=== PATIENT | male | born 1950 | race Caucasian/White ===

== ENCOUNTER 2023-11-06 10:32 | Outpatient (REF) | payer MEDICARE, SELFPAY | END 2023-11-06 10:33 | disposition home or self-care (01) | LOC: HO.HOSX 10:32 | PROVIDERS: Visit Provider Orthopaedic Surgery | DX: Z13.89 Encounter for screening for other disorder (principal) ==

== ENCOUNTER 2023-11-13 07:37 | Outpatient (AMB) | payer MEDICARE, SELFPAY ==
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
[2023-11-13 08:04] VITALS: BMI 25.8
== END 2023-11-13 08:26 | disposition home or self-care (01) ==
PROVIDERS: PCP Physician Assistant Medical; Visit Provider Orthopaedic Surgery
DX: M25.512 Pain in left shoulder (principal)
CPT/HCPCS: 20610; 99204

== ENCOUNTER 2023-11-13 09:22 | Outpatient (REF) | payer MEDICARE, SELFPAY ==
--- NOTE | ~2023-11-13 | XR_ITS ---
EXAMINATION: XR SHOULDER, LEFT CLINICAL INFORMATION: Pain. COMPARISON: None available. TECHNIQUE: AP external rotation, Grashey, scapular Y, and axillary views of the left shoulder. FINDINGS: Bony alignment and mineralization are normal. The glenohumeral joint is intact. The acromioclavicular and coracoclavicular intervals are normal. 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 No fracture or dislocation is seen. There is no soft tissue calcification or foreign body. Question 5.9 x 2.5 cm opacity related to the proximal left humeral shaft versus overlapping soft tissue density. No left pneumothorax is seen. XR/XR shoulder LT min 2V IMPRESSION: 1. Unremarkable left shoulder. 2. Question 5.9 cm circumscribed opacity within the medullary space of the proximal left humerus versus overlapping opacity. Recommend two-view radiographs of the humerus for further evaluation.
== END 2023-11-13 09:23 | disposition home or self-care (01) ==
LOC: HO.HOSX 09:22
PROVIDERS: Visit Provider Orthopaedic Surgery
DX: M25.512 Pain in left shoulder (principal)
CPT/HCPCS: 20610; 73030; 99202; J1010

== ENCOUNTER 2023-12-05 09:30 | Outpatient (REF) | payer MEDICARE, SELFPAY | END 2023-12-05 09:31 | disposition home or self-care (01) | LOC: HO.HOSX 09:30 | PROVIDERS: Visit Provider Orthopaedic Surgery | DX: Z13.89 Encounter for screening for other disorder (principal) ==

== ENCOUNTER 2023-12-06 09:10 | Outpatient (REF) | payer MEDICARE, SELFPAY | END 2023-12-06 09:11 | disposition home or self-care (01) | LOC: HO.HOSX 09:10 | PROVIDERS: Visit Provider Orthopaedic Surgery | DX: Z13.89 Encounter for screening for other disorder (principal) ==

== ENCOUNTER 2024-02-14 09:15 | Outpatient (AMB) | payer MEDICARE, SELFPAY ==
--- NOTE | 2024-02-14 09:20 | A.OFFVIS_ITS ---
Intake Visit Reasons: OV- Left Shoulder, injection request Intake Note: Medhat is a 73 year old male who presents with complaints of left shoulder pain. The patient describes his pain as sharp in nature. He has had cortisone injections in the past which gave him fairly good relief. The patient states that his left shoulder pain was increased after getting a massage several weeks ago. He continues to play golf for exercise. He has tried Tylenol and anti- inflammatory medicines which gave him minimal relief. Allergies No Known Allergies Allergy (Verified 02/14/24 09:25) Medication List - Last Reconciled 02/14/24 by Jonathan Traore MD aspirin (Adult Low Dose Aspirin) 81 mg PO DAILY atorvastatin 40 mg PO BEDTIME dorzolamide 2% 1 drp ophthalmic (eye) TID latanoprost 0.005% 1 drp ophthalmic (eye) DAILY PFS Social History (Updated 02/14/24 @ 09:25 by WERO Godoy) Alcohol intake: former Patient Tobacco Use Status: Never used Tobacco Current occupational status: retired Physical Exam Const Other: Well-nourished well-developed very friendly male awake alert and oriented x3 in no acute distress Extrem Other: Bilateral upper extremity examination shows good capillary refill, no skin lesions noted, normal sensation light touch Left shoulder examination shows decreased range of motion when compared to his right shoulder, 4+ out of 5 strength with supraspinatus testing, positive impingement signs, no instability Office Procedures Joint Injection/Aspiration Joint Injection/Aspiration Primary Site: left shoulder Prep: site was prepped using aseptic technique Injected: 40 mg of, DepoMedrol and 1% plain lidocaine Procedure: The patient tolerated the procedure well Coding 12662 - Large joint Procedure code (CPT) selection complete Assessment & Plan Assessment & Plan (1) Impingement syndrome of left shoulder: Code(s): M75.42 - Impingement syndrome of left shoulder Category: Medical Plan Mr. Herrera presents with left shoulder pain due to impingement syndrome. I had a lengthy discussion with the patient regarding the treatment options. The risks and benefits of a left shoulder cortisone injection were discussed at length with the patient. The patient wished to proceed. He tolerated the injection well. He will continue with his [id number] exercises to prevent stiffness. He will contact me prior to his follow-up appointment in 3 months should any questions or concerns arise. Feel free to call me at any time should questions regarding his orthopedic management arise. I spent 22 minutes in reviewing the patient's records and imaging studies, seeing the patient and documenting in the medical record. Orders: Orders AMB Joint Injection/Aspiration Today M75.42 - Impingement syndrome of left shoulder Coding Level of Care Code Est Pt Level 3 (90489) Complex EM visit Add On G2211 Diagnoses Impingement syndrome of left shoulder M75.42 CPT Codes Coding - 72280 Large joint: 14546 - Large joint ([id number])
== END 2024-02-14 09:59 | disposition home or self-care (01) ==
PROVIDERS: PCP Physician Assistant Medical; Visit Provider Orthopaedic Surgery
DX: M75.42 Impingement syndrome of left shoulder (principal)
CPT/HCPCS: 20610; 99213

== ENCOUNTER → 2024-02-14 09:15 | Outpatient (BNVA) | payer MEDICARE, SELFPAY | PROVIDERS: PCP Physician Assistant Medical; Visit Provider Orthopaedic Surgery | DX: M75.42 Impingement syndrome of left shoulder (principal) | CPT/HCPCS: 20610; 99212; J1010 ==

== ENCOUNTER 2024-05-20 08:12 | Outpatient (AMB) | payer MEDICARE, SELFPAY ==
--- OUTSIDE RECORDS SUMMARY | 2024-05-20 08:16 | XMS_ITS | Continuity of Care Document ---
Author Organization [facility] Address [address] [place] [address]- Support Name Relationship Address Phone CRISTINA, SARIKA Personal Relationship Unknown Unava ilable CRISTINA, SARIKA Personal Relationship Unknown Unava ilable CRISTINA, SARIKA Personal Relationship Unknown Unava ilable CRISTINA, SARIKA Personal Relationship Unknown Unava ilable CRISTINA, SARIKA Personal Relationship Unknown Unava ilable CRISTINA, SARIKA Personal Relationship Unknown Unava ilable CRISTINA, SARIKA Personal Relationship Unknown Unava ilable CRISTINA, SARIKA Personal Relationship Unknown Unava ilable CRISTINA, SARIKA Personal Relationship Unknown Unava ilable CRISTINA, SARIKA Personal Relationship Unknown Unava ilable CRISTINA, SARIKA Personal Relationship Unknown Unava ilable CRISTINA, SARIKA Personal Relationship Unknown Unava ilable CRISTINA, SARIKA Personal Relationship Unknown Unava ilable CRISTINA, SARIKA J Personal Relationship Unknown Nidia vailable CRISTINA, SARIKA Personal Relationship Unknown Unava ilable CRISTINA, SARIKA Personal Relationship Unknown Unava ilable CRISTINA, SARIKA Personal Relationship Unknown Unava ilable CRISTINA, SARIKA Personal Relationship Unknown Unava ilable CRISTINA, SARIKA Personal Relationship Unknown Unava ilable BREGOLI, JEREMY spouse Unknown Unavailabl e CRISTINA, SARIKA Personal Relationship Unknown Unava ilable CRISTINA, SARIKA Personal Relationship Unknown Unava ilable CRISTINA, SARIKA Personal Relationship Unknown Unava ilable CRISTINA, SARIKA Personal Relationship Unknown Unava ilable BREGOLI, KELLE Personal Relationship Unknown Un available CRISTINA, SARIKA Personal Relationship Unknown Unava ilable CRISTINA, SARIKA Personal Relationship Unknown Unava ilable CRISTINA, SARIKA Personal Relationship Unknown Unava ilable CRISTINA, SARIKA Personal Relationship Unknown Unava ilable CRISTINA, SARIKA Personal Relationship Unknown Unava ilable CRISTINA, SARIKA Personal Relationship Unknown Unava ilable CRISTINA, SARIKA Personal Relationship Unknown Unava ilable QUIRK, SARIKA Personal Relationship Unknown Unavai lable CRISTINA, SARIKA Personal Relationship Unknown Unava ilable CRISTINA, SARIKA Personal Relationship Unknown Unava ilable CRISTINA, SARIKA Personal Relationship Unknown Unava ilable CRISTINA, SARIKA Personal Relationship Unknown Unava ilable CRISTINA, SARIKA Personal Relationship Unknown Unava ilable CRISTINA, SARIKA Personal Relationship Unknown Unava ilable CRISTINA, SARIKA domestic partner Unknown Unavailabl e CRISTINA, SARIKA Personal Relationship Unknown Unava ilable Care Team Providers Care Buyer Tobacco Head Name Role Phone Tacho Granados Primary Care Physician Encounter [facility] Date(s): 05/07/24 - 05/14/24 [facility] [place] [address]- Encounter Diagnosis Medicare annual wellness visit, subsequent(Discharge Diagnosis) - 05/07/24 Essential hypertension(Discharge Diagnosis) - 05/07/24 Chronic kidney disease, stage 3a(Discharge Diagnosis) - 05/07/24 PAD (peripheral artery disease)(Discharge Diagnosis) - 05/07/24 Mixed hyperlipidemia(Discharge Diagnosis) - 05/07/24 CAD (coronary artery disease)(Discharge Diagnosis) - 05/07/24 Chronic cervical pain(Discharge Diagnosis) - 05/07/24 Left foot drop(Discharge Diagnosis) - 05/07/24 BPH (benign prostatic hyperplasia)(Discharge Diagnosis) - 05/07/24 Senile purpura(Discharge Diagnosis) - 05/07/24 Abnormal glucose(Discharge Diagnosis) - 05/07/24 Encounter for screening fecal occult blood testing(Discharge Diagnosis) - 05/07/24 Attending Physician: Tacho Granados Referring Physician: Richard Washington MD Encounter Type: Office Visit Allergies, Adverse Reactions, Alerts No Known Allergies Immunizations Given and Recorded Vaccine Date Status Refusal Reason influenza virus vaccine, inactivated 03/20/24 Lalit rded influenza virus vaccine, inactivated 03/03/23 Lalit rded influenza virus vaccine, inactivated 02/22/22 Lalit rded influenza virus vaccine, inactivated 03/10/21 Lalit rded influenza virus vaccine, inactivated 01/27/20 Lalit rded influenza virus vaccine, inactivated 02/27/19 Lalit rded SARS-CoV-2 mRNA ([id number]) vax 11/03/21 Recorded SARS-CoV-2 (COVID-19) mRNA-1273 vaccine 1, 2 03/16/21 Given SARS-CoV-2 (COVID-19) mRNA-1273 vaccine 08/17/20 R ecorded SARS-CoV-2 (COVID-19) mRNA-1273 vaccine 07/20/20 R ecorded tetanus/diphtheria/pertussis, acel(Tdap) 3 06/21/14 Recorded pneumococcal 23-valent vaccine 4 06/21/14 Recorded 1? Unknown: Resend to [facility]. 2Result Comment: BOOSTER SHOT 0.25 ML 3Result Comment: per Dr. Camejo chart 4Result Comment: per Dr. Camejo chart Medications atorvastatin 40 mg oral tablet 1 tablet, By Mouth, Daily, # 90 tablet, 1 Refills, Maintenance, 02/26/24 9:42:00 AM EDT, [facility], 183, cm, 11/01/23 7:48:00 EDT, Height, 85.5, kg, 10/26/22 8:07:00 EDT, Dry Weight Start Date: 02/26/24 Status: Ordered Quantity: 90.0 Unit: tablet Repeat number: 1 Miguel Low Dose 81 mg oral delayed release tablet 1 tablet = 81 mg, By Mouth, Daily, 0 Refills, Maintenance, 01/01/17 1:10:15 PM EDT Start Date: 01/01/17 Status: Ordered Repeat number: 1 Dorzolamide 2% Ophth 1 drops, Eyes, Both, 3 times a day, 0 Refills, Maintenance, 04/08/15 8:39:52 AM EST Start Date: 04/08/15 Status: Ordered Repeat number: 1 hydrOXYzine pamoate 25 mg oral capsule 1 capsule = 25 mg, By Mouth, 4 times a day, PRN for anxiety, # 40 capsule, 1 Refills, Maintenance, 10/18/21 10:51:00 AM EDT, Capsule, [facility], Partial fill upon patient request ifthe prescription is for a schedule II opioid drug., 183.3, cm, 10/18/21 10:36:00 EDT, Height Start Date: 10/18/21 Status: Ordered Quantity: 40.0 Unit: capsule Repeat number: 2 Indication: Generalized anxiety disorder Latanoprost 0.005% Ophth 1 drops, Eyes, Both, Daily at bedtime, 0 Refills, Maintenance, 04/08/15 8:39:32 AM EST Start Date: 04/08/15 Status: Ordered Repeat number: 1 Left AFO Brace Left AFO Brace, See Instructions, # 1 each, Refills 0, Tot. Refills 0, Maintenance, 1 left AFO brace to be repaired or replaced. Dx Left foot drop (M21. 372). For Life, 05/07/24 8:13:00 AM EST, Supply Start Date: 05/07/24 Status: Ordered Quantity: 1.0 Unit: each Repeat number: 1 Indication: Foot drop, left foot Metoprolol Tartrate 25 mg oral tablet 1 tablet, By Mouth, Daily, # 90 tablet, 1 Refills, Maintenance, 08/30/23 2:07:00 PM EDT, [facility], 183, cm, 07/04/23 8:23:00 EST, Height, 85.5, kg, 10/26/22 8:07:00 EDT, Dry Weight Start Date: 08/30/23 Status: Ordered Quantity: 90.0 Unit: tablet Repeat number: 2 tadalafil 10 mg oral tablet 1 tablet = 10 mg, By Mouth, Daily, 1 hour before sexual activity, # 30 tablet, 1 Refills, Maintenance, 11/01/23 8:04:00 AM EDT, [facility], Partial fill upon patient request if the prescription is for a schedule II opioid drug., 183, cm, 11/01/23 7:48:00 EDT, Height, 85.5, kg, 10/26/22 8:07:00 EDT, Dry Weight Start Date: 11/01/23 Status: Ordered Quantity: 30.0 Unit: tablet Repeat number: 2 traMADol 50 mg oral tablet See Instructions, PRN for pain, Take 1-2 tablets TID PRN for severe pain., # 120 tablet, 0 Refills,Maintenance, 04/21/24 7:11:00 AM EST, Tablet, [facility], Partial fill upon patient request if the prescription is for a schedule II opioid drug., 183, cm, 11/01/23 7:48:00 EDT, Height, 85.5, kg, 10/26/22 8:07:00 EDT, Dry Weight Start Date: 04/21/24 Status: Ordered Quantity: 120.0 Unit: tablet Repeat number: 1 Problem List Condition Confirmation Course Effective Dates Status H ealth Status Informant BPH (benign prostatic hyperplasia) Confirmed Active CAD (coronary artery disease) 1 Confirmed Active Chronic kidney disease, stage 3a 2 Confirmed Active Chronic cervical pain 3 Confirmed Active Essential hypertension Confirmed Active Former smoker Confirmed Active Left foot drop Confirmed Active KAUA (generalized anxiety disorder) Confirmed Active History of alcohol abuse 4 Confirmed Active Mixed hyperlipidemia Confirmed Active PAD (peripheral artery disease) Confirmed Active Prediabetes Confirmed Active Senile purpura Confirmed Active 1sees Dr. Mcdaniel 2Per chart review meeting GFR criteria 3per med rec 4per med rec - going to Diagnosis Diagnosis Type Effective Dates Health Status Clinical Service Informant Medicare annual wellness visit, subsequent Discharge Diagnosis 05/07/24 Essential hypertension Discharge Diagnosis 05/07/24 Chronic kidney disease, stage 3a Discharge Diagnosis 05/07/24 PAD (peripheral artery disease) Discharge Diagnosis 05/07/24 Mixed hyperlipidemia Discharge Diagnosis 05/07/24 CAD (coronary artery disease) Discharge Diagnosis 05/07/24 Chronic cervical pain Discharge Diagnosis 05/07/24 Left foot drop Discharge Diagnosis 05/07/24 BPH (benign prostatic hyperplasia) Discharge Diagnosis 05/07/24 Senile purpura Discharge Diagnosis 05/07/24 Abnormal glucose Discharge Diagnosis 05/07/24 Encounter for screening fecal occult blood testing Discharge Diagnosis 05/07/24 Vital Signs Most recent to oldest [Reference Range]: 1 Height 183.0 cm (05/07/24 8:04 AM) Weight 89.4 kg (05/07/24 8:04 AM) Oxygen Saturation [94-100 %] 98 % (05/07/24 8:04 AM) Pulse Rate [55-90 bpm] 65 bpm (05/07/24 8:04 AM) Body Mass Index [18.5-24.99 kg/m2] 26.7 kg/m2 *H* (05/07/24 8:04 AM) Blood Pressure [90-138/55-84 mm Hg] 111/ 73mm Hg (05/07/24 8:04 AM) Blood pressure sites Arm, left (05/07/24 8:04 AM) Social History Social History Type Response Smoking Status Former smoker, quit more than 30 days ago; Other: Smoked about 1 ppd for 30 years - declines LDCT; Started at age: 18; Stopped at age: 54; entered on: 05/02/23 Sex Sex Representation Male (finding) Note * Sanjuanita Harvey [place]: PERFORM Event Display: Patient Education/Instruction Authored Date: [id number] Ambulatory Adult Visit Summary [facility] [address] [place] [address] Name: KELLE GARCIA : 1950?? Visit: 05/07/2024 07:56?? Ambulatory Visit Instructions ?? Your Care Team Primary Care Provider Tacho Granados? This Visit Provider Tacho Granados Your Diagnosis Medicare annual wellness visit, subsequent Essential hypertension Chronic kidney disease, stage 3a PAD (peripheral artery disease) Mixed hyperlipidemia CAD (coronary artery disease) Chronic cervical pain Left foot drop BPH (benign prostatic hyperplasia) Senile purpura Abnormal glucose Encounter for screening fecal occult blood testing Vitals Signs Pulse Rate: 65 bpm Height: 183 cm Systolic Blood Pressure: 111 mm Hg Weight: 89.4 kg Diastolic Blood Pressure: 73 mm Hg Body Mass Index:??26.7 kg/m2??High Oxygen Saturation: 98 % Body surface area: 2.13 What to do next Follow-Up Appointments Follow Up with??Tacho Granados When:??05/12/2025 07:10 AM EST Why: wellness Where: [address] [place] [id number]- Follow Up with??Tacho Granados When:??11/11/2024 07:50 AM EDT Why: 6 month follow up Where: [address] [place] [address]- Future Orders Fecal Occult Blood Immunochemical (Fecal Occult Blood Immunochemical FIT) - Routine, Once, 248:22:00 EST, [facility], Stool?? Hemoglobin A1C (Monitoring) - Routine, Once, 05/07/24 8:30:00 EST, Future Order, [facility], Blood?? Comprehensive Metabolic Panel - Routine, Once, 05/07/24 8:30:00 EST, Future Order, [facility], Blood?? Lipid Panel - Routine, Once, 05/07/24 8:30:00 EST, Future Order, [facility], Blood?? Medications The list below reflects the information in our records and provided by you today along with any changes made during this visit. Please continue your medications until treatment is completed or stopped by your provider. If this is different from the information you have or there are other questions,please contact the prescribing provider. What How Much When Why Instructions Changed Durable Medical Equipment (Left AFO Brace) See instructions Left foot drop 1 left AFO brace to be repaired or replaced. Dx Left foot drop (M21. 372). For Life ?? Printed Prescription Unchanged Aspirin (Miguel Low Dose 81 mg oral delayed release tablet) 1 tab(s) Oral Daily Unchanged Atorvastatin (atorvastatin 40 mg oral tablet) 1 tab(s) Oral Daily Unchanged Dorzolamide Ophthalmic (Dorzolamide 2% Ophth) 1 Drops Both eyes 3 times a day Unchanged HydrOXYzine (hydrOXYzine pamoate 25 mg oral capsule) 1 capsule Oral 4 times a day as needed for for anxiety AKUA (generalized anxiety disorder) Unchanged Latanoprost Ophthalmic (Latanoprost 0.005% Ophth) 1 Drops Both eyes Daily at Bedtime Unchanged Metoprolol (Metoprolol Tartrate 25 mg oral tablet) 1 tab(s) Oral Daily Unchanged tadalafil (tadalafil 10 mg oral tablet) 1 tab(s) Oral Daily 1 hour before sexual activity ?? Unchanged Tramadol (traMADol 50 mg oral tablet) See instructions Take 1-2 tablets TID PRN for severe pain., As needed for for pain ? What How Much When Comments Stop Taking Miscellaneous Rx (METOPROLOL TARTRATE 25MG TABS) 1 tab(s) Oral Daily Test Performed Below is a partial list of the tests performed during your Visit. You may have had other tests and procedures not included in this list. Please discuss all test results with your provider. Comprehensive Metabolic Panel?-- Results Pending -- Fecal Occult Blood Immunochemical FIT?-- Results Pending -- Hemoglobin A1C (Monitoring)?-- Results Pending -- Lipid Panel?-- Results Pending -- Medications and Immunizations Administered Medications Given During Visit No medications given during this visit.?? Allergies (NKA means No Known Allergies) NKA Common Emergency Awareness Tips IS IT A STROKE? Act FAST and Check for these signs: FACE Does the face look uneven? ARM Does one arm drift down? SPEECH Does their speech sound strange? TIME Call at any sign of stroke ?? Heart Attack Signs Chest discomfort: Most heart attacks involve discomfort in the center of the chest and lasts more than a few minutes, or goes away and comes back. It can feel like uncomfortable pressure, squeezing, fullness or pain. Discomfort in upper body: Symptoms can include pain or discomfort in one or both arms, back, neck, jaw or stomach. Shortness of breath: With or without discomfort. Other signs: Breaking out in a cold sweat, nausea, or lightheaded. Remember, MINUTES DO MATTER. If you experience any of these heart attack warning signs, call to get immediate medical attention! ?? Smoking can increase your chances of developing chronic health problems and can cause harmful effects to other family members in your house. If you smoke, you are strongly encouraged to quit. Please call [facility] Link at [phone] or [phone] ([phone]) or log in to [email or web address] for referrals to smoking cessation programs. ?? The National Suicide Prevention Hotline is available 11/12 if you or someone you know needs to find a reason to keep living. By calling 1-223-511-Workstir (7445) you'll be connected to a skilled, trained counselor at a crisis center in your area. [facility] Portal You can view and manage your care through the patient portal or by using a health care kimberly of your choosing. [employer] is a website that allows you to securely view your medical information including your hospital discharge summary, office visit summaries, medications and follow-up visits. You can also request appointments, renew medications, and request access to your medical information using a health care kimberly of your choosing, or just ask a question. You can enroll at [email or web address] or register during your next office visit. [facility], in keeping with [facility] guidance, no longer requires face masks for staff, patientsor visitors in most situations. Similiar to time spent indoors at other locations, there is the chance that you were exposed to repiratory viruses during your time with us (such as flu or COVID-19). If you develop symptoms concerning for a viral respiratory infection, please seek testing (and treatment if indicated) from your medical provider or home test kit. ?? Disclaimer: The information provided is of a general nature and is intended to be used in conjunction with the recommendations and advice of your health care practitioner. Every effort has been made to ensure that the information provided is accurate and complete at the time it is provided to you however, as your needs change, or, as new information becomes available, different or additional instructions may be required. ?? If you have questions, please consult with your primary care provider or pharmacist, as appropriate. This information is not intended to serve as substitution for assessment and evaluation by a qualified health care provider. If you do not have a primary care provider, you may find a [facility] provider by calling [facility] at [phone]. Patient Care team information Care Team Personnel Name: Tacho Granados Position: [facility] PCO Associate Professional Member Role: PCP Address: [address] [place] [address]- Telecom: Name: Lucio Maldonado MD Position: [facility] Renal MD Member Role: Lifetime Consulting Physician Address: [address] [place], [place] [id number] [facility] [place] [address]- OP Telecom: Name: Jojo Carrasco RN Position: [facility] SN Research Technologist Member Role: Primary Care Nurse Care Team Related Persons Name: SARIKA EVANS Insurance Providers Guarantor name: KELLE VIDALEITAN Health Plan Information #: 1 Payer: MEDICARE PART B OUTPT Member Number: [id number] Policy Number: NA Group Number: NA Health Plan Information #: 2 Payer: MEDICARE PART B OUTPT Member Number: [id number] Policy Number: NA Group Number: NA
[2024-05-20 08:18] VITALS: BMI 25.8
--- NOTE | 2024-05-20 08:18 | MHC.OFFVIS ---
Vital Signs 05/20/24 08:18 Height 6 ft Weight 190 lb BMI 25.8 Intake Visit Reasons: Left shoulder pain Intake Note: Medhat is a 74 year old male who presents with complaints of left shoulder pain. He describes his pain as sharp in nature. He did have a cortisone injection given into his left shoulder earlier this year. He got fairly good relief from that injection. He has tried Tylenol and ibuprofen which gave him mild relief. He wishes to hold off on surgery for as long as possible. He has tried physical therapy exercises which aggravated his pain. Allergies No Known Allergies Allergy (Verified 05/20/24 08:20) Medication List - Last Reconciled 05/20/24 by Jonathan Traore MD aspirin (Adult Low Dose Aspirin) 81 mg PO DAILY atorvastatin 40 mg PO BEDTIME dorzolamide 2% 1 drp ophthalmic (eye) TID latanoprost 0.005% 1 drp ophthalmic (eye) DAILY PFS Social History (Updated 02/14/24 @ 09:25 by WERO Godoy) Alcohol intake: former Patient Tobacco Use Status: Never used Tobacco Current occupational status: retired Physical Exam Vital Signs: BMI result Body Mass Index 25.8 Const Other: Well-nourished well-developed very friendly male awake alert and oriented x3 in no acute distress Extrem Other: Bilateral upper extremity examination shows good capillary refill, no skin lesions noted, normal sensation light touch Left shoulder examination shows slightly decreased range of motion when compared to his right shoulder, positive impingement signs, 4+ out of 5 strength with supraspinatus testing, no instability Office Procedures AMB Joint Injection/Aspiration Joint Injection/Aspiration Primary Site: left shoulder Prep: site was prepped using aseptic technique Injected: 40 mg of, DepoMedrol and 1% plain lidocaine Procedure: The patient tolerated the procedure well Coding 12057 - Large joint Procedure code (CPT) selection complete Assessment & Plan Assessment & Plan (1) Impingement syndrome of left shoulder: Code(s): M75.42 - Impingement syndrome of left shoulder Category: Medical (2) Left shoulder pain: Code(s): M25.512 - Pain in left shoulder Category: Medical Plan Mr. Herrera presents with left shoulder pain due to impingement syndrome. The risks and benefits of a left shoulder cortisone injection were discussed at length with the patient. The patient wished to proceed. He tolerated the injection well. He will continue with his home exercise program. He will contact me prior to his follow-up appointment in 3 months should any questions or concerns arise. Feel free to call me at any time should questions regarding his orthopedic management arise. I spent 20 minutes in reviewing the patient's records and imaging studies, seeing the patient and documenting in the medical record. Orders: Orders AMB Joint Injection/Aspiration Today M75.42 - Impingement syndrome of left shoulder Coding Level of Care Code Est Pt Level 3 (06500) Complex EM visit Add On G2211 Diagnoses Impingement syndrome of left shoulder M75.42 Left shoulder pain M25.512 CPT Codes Coding - 39097 Large joint: 34322 - Large joint ([id number])
== END 2024-05-20 08:43 | disposition home or self-care (01) ==
PROVIDERS: PCP Physician Assistant Medical; Visit Provider Orthopaedic Surgery
DX: M75.42 Impingement syndrome of left shoulder (principal); M25.512 Pain in left shoulder
CPT/HCPCS: 20610; 99213

== ENCOUNTER → 2024-05-20 08:12 | Outpatient (BNVA) | payer MEDICARE, SELFPAY | PROVIDERS: PCP Physician Assistant Medical; Visit Provider Orthopaedic Surgery | DX: M75.42 Impingement syndrome of left shoulder (principal) | CPT/HCPCS: 20610; 99212; J1010; J2003 ==

== ENCOUNTER 2024-08-21 08:24 | Outpatient (AMB) | payer MEDICARE, SELFPAY ==
--- NOTE | 2024-08-21 08:31 | MHC.OFFVIS ---
Vital Signs 08/21/24 08:32 Height 6 ft Weight 190 lb BMI 25.8 Intake Visit Reasons: Left shoulder pain, Right knee pain Intake Note: Medhat is a 74 year old right hand dominant male who presents with complaints of progressively worsening right knee pain as well as left shoulder pain. The patient describes his left shoulder pain as achy in nature. He describes his right knee pain as sharp in nature. He did injure his right knee approximately 10 years ago. Since that time his symptoms have gotten worse. He has failed the last 3 months of conservative treatment which has included physical therapy exercises, a home exercise program, Tylenol, anti-inflammatory medicines and topical creams. He denies any locking or giving way. He has had cortisone injections given into his right knee in the past. The most recent injection gave him no relief. He wishes to hold off on surgery for as long as possible. He has not had a viscosupplementation injection. Allergies No Known Allergies Allergy (Verified 08/21/24 08:34) Medication List - Last Reconciled 08/21/24 by Jonathan Traore MD aspirin (Adult Low Dose Aspirin) 81 mg PO DAILY atorvastatin 40 mg PO BEDTIME dorzolamide 2% 1 drp ophthalmic (eye) TID latanoprost 0.005% 1 drp ophthalmic (eye) DAILY [facility] Social History (Updated 02/14/24 @ 09:25 by WERO Godoy) Alcohol intake: former Patient Tobacco Use Status: Never used Tobacco Current occupational status: retired Physical Exam Vital Signs: BMI result Body Mass Index 25.8 Const Other: Well-nourished well-developed very friendly male awake alert and oriented x3 in no acute distress Extrem Other: Bilateral upper extremity examination shows good capillary refill, no skin lesions noted, normal sensation light touch Left shoulder examination shows slightly decreased range of motion when compared to his right shoulder, 4+ out of 5 strength with supraspinatus testing, positive impingement signs, no instability Right knee examination shows palpable crepitus with range of motion, pain with range of motion, range of motion from-3 degrees to 115 degrees, no instability Office Procedures AMB Joint Injection/Aspiration Joint Injection/Aspiration Primary Site: left shoulder Prep: site was prepped using aseptic technique Injected: 40 mg of, DepoMedrol and 1% plain lidocaine Procedure: The patient tolerated the procedure well Coding 32657 - Large joint Procedure code (CPT) selection complete Assessment & Plan Assessment & Plan (1) Impingement syndrome of left shoulder: Code(s): M75.42 - Impingement syndrome of left shoulder Category: Medical (2) Osteoarthritis of right knee: Code(s): M17.11 - Unilateral primary osteoarthritis, right knee Category: Medical (3) Left shoulder pain: Code(s): M25.512 - Pain in left shoulder Category: Medical (4) Right knee pain: Code(s): M25.561 - Pain in right knee Category: Medical Plan Mr. Herrera presents with left shoulder pain due to impingement syndrome as well as right knee pain due to osteoarthritis. The risks and benefits of a left shoulder cortisone injection were discussed at length with the patient. The patient wished to proceed. He tolerated the injection well. He has not gotten good relief from right knee cortisone injections in the past. Thus, I will see if his insurance company will cover a viscosupplementation injection such as Durolane. I will see him back once the injection is available. Feel free to call me any time should questions regarding orthopedic management arise. I spent 21 minutes in reviewing the patient's records and imaging studies, seeing the patient and documenting in the medical record. Orders: Orders AMB Joint Injection/Aspiration Today M75.42 - Impingement syndrome of left shoulder Coding Level of Care Code Est Pt Level 3 (78171) Complex EM visit Add On G2211 Diagnoses Impingement syndrome of left shoulder M75.42 Osteoarthritis of right knee M17.11 Left shoulder pain M25.512 Right knee pain M25.561 CPT Codes Coding - Large joint: 53001 - Large joint ([id number])
[2024-08-21 08:32] VITALS: BMI 25.8
--- OUTSIDE RECORDS SUMMARY | 2024-08-21 08:33 | XMS_ITS | Clinical Summary ---
Author Organization [facility] Address [address] [place] [address] Care Team Providers Care Running Specialist Name Role Phone Rashel Camejo MD Primary Care Provider [phone] Allergies No known active allergies Medications Medication Sig Dispensed Refills Start Date End Date Status metoprolol tartrate (LOPRESSOR) 25 MG tablet Take 25 mg by mouth daily. 0 12/16/2018 Active tadalafil (CIALIS) 5 MG tablet Take 5 mg by mouth daily as needed. 1 02/07/2019 Active atorvastatin (LIPITOR) tablet 40 mg Take 40 mg by mouth every night at bedtime. 0 05/12/2019 Active latanoprost (XALATAN) 0.005 % ophthalmic solution INSTILL 1 DROP IN RIGHT EYE AT BEDTIME 8 03/19/2019 Active dorzolamide-timolol PF (COSOPT PF) 22.3-6.8 MG/ML ophthalmic solution Place 1 drop into the right eye daily. 0 Active aspirin EC 81 MG EC tablet Take 1 tablet (81 mg total) by mouth 2 (two) times a day after meals. 80 tablet 0 06/06/2019 Active senna-docusate (PERICOLACE) 8.6-50 MG Take 1 tablet by mouth 2 (two) times a day. 14 tablet 0 06/06/2019 Active methocarbamol (ROBAXIN) 750 MG tablet Take 1 tablet (750 mg total) by mouth every 6 (six) hours as needed. 45 tablet 0 06/06/2019 Active pantoprazole (PROTONIX) 40 MG tablet Take 1 tablet (40 mg total) by mouth every morning on an empty stomach. 40 tablet 0 06/07/2019 Active oxyCODONE (ROXICODONE) 5 MG immediate release tablet 1-2 tabs p.o. every 6 hours as needed for pain. May fill for lesser quantity. 40 tablet 0 06/10/2019 Active traMADol (ULTRAM) 50 MG tablet 0 06/10/2019 Active Active Problems Problem Noted Date Diagnosed Date Hip stiffness, left 01/15/2020 It band syndrome, left 01/15/2020 Postop check 06/19/2019 Osteoarthritis of one hip, left 03/19/2019 Greater trochanteric bursitis of left hip 2018 Arthritis of left hip 01/07/2019 Stented coronary artery 12/11/2011 PVD (peripheral vascular disease) 12/11/2011 Hyperlipidemia 12/11/2011 HTN (hypertension) 12/11/2011 CAD (coronary artery disease) 12/11/2011 A-fib 12/11/2011 Family History Medical History Relation Name Comments Arthritis Brother Alcohol abuse Father Diabetes Father Alcohol abuse Mother Heart disease Mother Relation Name Status Comments Brother Alive Father (Age 69) LIVER FAIL URE Mother (Age 62) [place] Social History Tobacco Use Types Packs/Day Years Used Date Smoking Tobacco: Former Cigarettes 1.5 20 Q uit: 2007 Smokeless Tobacco: Never Alcohol Use Standard Drinks/Week Comments No 0 (1 standard drink = 0.6 oz pur e alcohol) Sex and Gender Information Value Date Recorded Sex Assigned at Male 05/23/2019 2:39 PM EST Gender Identity Male 05/23/2019 2:39 PM EST Sexual Orientation Straight 06/05/2019 5: 42 AM EST Last Filed Vital Signs Vital Sign Reading Time Taken Comments Blood Pressure 116/64 06/06/2019 8:50 AM EST Pulse 73 06/06/2019 8:50 AM EST Temperature 36.7 ??C (98 ??F) 06/06/2019 8:50 AM EST Respiratory Rate 15 06/06/2019 8:50 AM EST Oxygen Saturation 99% 06/06/2019 8:50 AM EST Inhaled Oxygen Concentration - - Weight 86.2 kg (190 lb) 06/05/2019 5:45 AM EST Height 182.9 cm (6') 06/05/2019 5:45 AM EST Body Mass Index 25.77 06/05/2019 5:45 AM EST Plan of Treatment Health Maintenance Due Date Last Done Comments Hepatitis C Screening 1950 Lung Cancer Screening (Low D ose CT) 1952 COVID-19 Vaccine (#1) 1952 Depression Screening 1964 Preventative Health Evaluation 1970 DTap / Tdap / Td (1 - Tdap) 1971 Colon Cancer Screening (Colonoscopy) 1997 Shingrix-Zoster Vaccine (1 of 2) 2002 Fall Risk Assessment 2017 Pneumococcal Vaccine (1 of 1 - PCV) 2017 Influenza Vaccine (#1) 2024 RSV Adult > 60+ Yrs or Pregn ant (1 - 1-dose 75+ series) 2027 Hepatitis B Vaccines Aged Out No long er eligible based on patient's age to complete this topic RSV Ped < 20 months Aged Out No longe r eligible based on patient's age to complete this topic Medical Devices Implanted Type Area Product Development Actuary Device Identifier Shelf Expiration Date Model / Serial / Lot Shell Trident Ii F 58mm 5 Screw Hole Cluster Tritanium - [id number] - [id number] Implanted:Qty: 1 on 06/05/2019 by Jonathan Traore MD at [facility] [place] and Med Left: Hip [employer] 01/20/2024 702-04-58F / / [id number] Screw Trident Ii 30mm 6.5mm Low Profile Hexagonal Bone - [id number] - [id number] Implanted:Qty: 1 on 06/05/2019 by Jonathan Traore MD at [facility] [place] and Med Left: Hip [employer] 12/01/2023 [id number] / / [id number] Screw Trident Ii 25mm 6.5mm Low Profile Hexagonal Bone - [id number] - [id number] Implanted:Qty: 1 on 06/05/2019 by oJnathan Traore MD at [facility] [place] and Med Left: Hip [employer] 01/12/2024 [id number] / / [id number] Insert Trident 10d F 36mm X3 Acetabular Hip - [id number] - [id number] Implanted:Qty: 1 on 06/05/2019 by Jonathan Traore MD at [facility] [place] and Med Left: Hip [employer] 09/23/2023 623-10-36F / / [id number] Stem Hip Neck Angle 127 Degree Accolade Ii 7 - [id number] - [id number] Implanted:Qty: 1 on 06/05/2019 by Jonathan Traore MD at [facility] [place] and [facility] Left: Hip [employer] 02/16/2024 [id number] / / [id number] Head V40 -5mm 36mm Delta Femoral Hip - [id number] - [id number] Implanted:Qty: 1 on 06/05/2019 by Jonathan Traore MD at [facility] [place] and [facility] Left: Hip [employer] 03/17/2024 6570-0-036 / / [id number] Advance Directives For more information, please contact: [phone] Latest Code Status on File Code Status Date Activated Date Inactivated Comments Full Code 06/05/2019 9:17 AM 06/06/2019 6:45 PM This code status was ascertained in the following way: per living will or healthcare instructions . Code Status History Code Status Date Activated Date Inactivated Comments Full Code 06/05/2019 5:17 AM 06/05/2019 9:16 AM This code status was ascertained in the following way: discussion with patient . Care Teams Running Specialist Relationship Specialty Start Date End Date Rashel Camejo MD [address] [facility] [address] Cardiology & [place] [address] PCP - General Internal Medicine 06/02/19
--- OUTSIDE RECORDS SUMMARY | 2024-08-21 08:33 | XMS_ITS | Clinical Summary ---
Author Organization [facility] Facility Address [address] [address] Care Team Providers Care Color Dipper Name Role Phone Tacho Moore PA-C Primary Care Provider [phone] Allergies Active Allergy Reactions Criticality Noted Date Comments Warfarin 12/11/2011 Medications aspirin (ST ROMMEL) 81 MG EC tablet Take 1 tablet by mouth 1 (one) time each day 06/06/2019 Active atorvastatin (LIPITOR) 40 MG tablet Comments: Filled Date: May 12 2019 12:00AM Patient Notes: TAKE ONE TABLET BY MOUTH EVERY DAY Duration: 90 05/12/2019 Active dorzolamide (TRUSOPT) 2 % ophthalmic solution Comments: Filled Date: Jun 23 2016 12:00AM Patient Notes: INSTILL 1 DROP IN RIGHT EYE TWICE A DAY Duration: 60 06/23/2016 Active fluticasone (Flonase) 50 MCG/ACT nasal spray as directed Active latanoprost (XALATAN) 0.005 % ophthalmic solution as directed 03/19/2019 Active metoprolol succinate XL (TOPROL-XL) 25 MG 24 hr tablet Take 1 tablet by mouth 1 (one) time each day Active pantoprazole (PROTONIX) 40 MG EC tablet Comments: Filled Date: Jun 06 2019 12:00AM Duration: 40 06/07/2019 Active traMADol (ULTRAM) 50 MG tablet Take 1 tablet by mouth every 6 (six) hours if needed 06/10/2019 Active tadalafil (CIALIS) 5 MG tablet Take 5 mg by mouth 1 (one) time each day if needed 09/02/2020 Active Active Problems Problem Noted Date Diagnosed Date Cyst of kidney 11/15/2020 Dyslipidemia 11/15/2020 Tobacco dependence syndrome 11/15/2020 Atherosclerotic heart diseas e of [place] coronary artery without angina pectoris, not otherwise specified 11/15/2020 Crushing injury of lower leg 11/15/2020 Hypertensive heart disease without heart failure 07/13/2020 Malignant neoplasm of urinary bladder 07/13/2020 Diverticulum of bladder 07/13/2020 Stage 3a chronic kidney disease 07/13/2020 Peripheral vascular disease 12/11/2011 Atrial fibrillation 12/11/2011 Resolved Problems Problem Noted Date Diagnosed Date Resolved Date Serum creatinine above reference range 07/13/2020 11/15/2020 Atrial fibrillation 12/11/2011 03/20/20 Peripheral vascular disease 12/11/2011 03/20/2021 Immunizations Name Administration Dates Next Due Influenza TIV (IM) 02/18/2019 Influenza Vaccine, Quadrivalent, Adjuvanted 12/2019 Influenza, Trivalent, Adjuvanted 02/27/2019 Moderna SARS-COV-2 08/17/2020,07/20/2020 Pneumococcal Polysaccharide 06/21/2014 Tdap 06/21/2014 Family History Medical History Relation Comments Diabetes Father Heart disease Mother [place] Relation Status Comments Father Mother Social History Tobacco Use Types Packs/Day Years Used Date Smoking Tobacco: Former Cigarettes Q uit: 05/21/2011 Smokeless Tobacco: Never Sex and Gender Information Value Date Recorded Sex Assigned at Not on file Legal Sex Male 4:48 PM EST Gender Identity Not on file Sexual Orientation Not on file Last Filed Vital Signs Vital Sign Reading Time Taken Comments Blood Pressure 110/60 03/23/2021 8:21 AM EDT Pulse 57 03/23/2021 8:21 AM EDT Temperature - - Respiratory Rate - - Oxygen Saturation 98% 03/23/2021 8:21 AM EDT Inhaled Oxygen Concentration - - Weight 86.6 kg (191 lb) 03/23/2021 8:21 AM EDT Height 182.9 cm (6') 03/23/2021 8:21 AM EDT Body Mass Index 25.9 03/23/2021 8:21 AM EDT Plan of Treatment Health Maintenance Due Date Last Done Comments Colorectal Cancer Screening: Annual FOBT 2001 Colorectal Cancer Screening: Colonoscopy 2001 Colorectal Cancer Screening: Sigmoidoscopy 2001 Pneumococcal Vaccine: 65+ Years (2 of 2 - PCV) 06/21/2015 06/21/2014 Influenza Vaccine (#1) 2024 0, 02/27/2019, 02/18/2019 Hepatitis B Vaccine Aged Out No longe r eligible based on patient's age to complete this topic Insurance MEDICARE MEDICARE Care Teams Color Dipper Relationship Specialty Start Date End Date Tacho Moore PA-C [address] [place] [address] PCP - General Physician Auto Glass Worker 11/18/20
--- OUTSIDE RECORDS SUMMARY | 2024-08-21 08:33 | XMS_ITS | Clinical Summary ---
Author Organization [facility] Address [address] [place] [address] Care Team Providers Care Attending Radiologist Name Role Phone Unavailable Primary Care Provider Unavailabl e Social History Tobacco Use Types Packs/Day Years Used Date Smoking Tobacco: Never Assessed Sex and Gender Information Value Date Recorded Sex Assigned at Not on file Gender Identity Not on file Sexual Orientation Not on file Plan of Treatment Health Maintenance Due Date Last Done Comments Hepatitis C Virus Screening 1952 DTaP/Tdap/Td Vaccines (1 - Tdap) 1971 Pneumococcal Vaccines 50+ (1 of 1 - PCV) 2002 Zoster (Shingles) Vaccine (1 of 2) 2002 COVID-19 Vaccine ( - 2023-2 5 season) 2024 RSV Vaccine 60 years and old er and Patients (1 - 1-dose 75+ series) 2027 Hepatitis B Vaccines Aged Out No long er eligible based on patient's age to complete this topic
--- OUTSIDE RECORDS SUMMARY | 2024-08-21 08:33 | XMS_ITS | Clinical Summary ---
Author Organization [facility] it Address [address] [place] [address] Care Team Providers Care Customer Service Associate Name Role Phone Rashel Camejo MD Primary Care Provider [phone] Surgical History Surgery Date Site/Laterality Comments FACIAL RECONSTRUCTION SURGERY PROCEDURE:FACIAL RECONSTRUCTION SURGERY CARDIAC CATHETERIZATION 2007 PROCEDURE:CARDIAC CATHETERIZATION;COMMENT:STENT VEIN SURGERY PROCEDURE:VEIN SURGERY LEG SURGERY Left PROCEDURE:LEG SURGERY;COMMENT:FOOT LEG SURGERY 2011 Left PROCEDURE:LEG SURGERY;COMMENT:BYPASS COLONOSCOPY PROCEDURE:COLONOSCOPY BLADDER SURGERY PROCEDURE:BLADDER SURGERY;COMMENT:TURBT TOTAL HIP ARTHROPLASTY 06/05/2019 Left PROCEDURE:TOTAL HIP ARTHROPLASTY;COMMENT:Procedur e: REPLACEMENT TOTAL HIP; Surgeon: Jonathan Traore MD; Location: [facility] Service: Orthopedics; Laterality: Left; JOINT REPLACEMENT PROCEDURE:JOINT REPLACEMENT Medical History Medical History Date Comments Blood clotting tendency (CMS/HCC) DX:Blood clotting tendency (HCC) Cancer (CMS/HCC) DX:Cancer (HCC) Osteoporosis DX:Osteoporosis Blind DX:Blind;COMMENT :LEFT EYE Osteoarthritis DX:Osteoarthriti s Rash DX:Rash;COMMENT: RIGHT LEG Angina pectoris 2007 DX:Angina pector is (HCC) Myocardial infarction (CMS/HCC) 2007 DX:Myocardial infarction (HCC) Hyperlipidemia DX:Hyperlipidemi a Hypertension DX:Hypertension Anxiety DX:Anxiety Glaucoma DX:Glaucoma Family History Medical History Relation Name Comments Arthritis Brother Alcohol abuse Father Diabetes Father Alcohol abuse Mother Heart disease Mother Relation Name Status Comments Brother Alive Father (Age 69) LIVER FAIL URE Mother (Age 62) [place] Social History Tobacco Use Types Packs/Day Years Used Date Smoking Tobacco: Former Cigarettes Q uit: 05/21/2007 Smokeless Tobacco: Never Alcohol Use Standard Drinks/Week Comments No 0 (1 standard drink = 0.6 oz pur e alcohol) Sex and Gender Information Value Date Recorded Sex Assigned at Not on file Legal Sex Male 11:57 AM EST Gender Identity Not on file Sexual Orientation Not on file Obstetrics History Plan of Treatment Health Maintenance Due Date Last Done Comments DTaP,Tdap,and Td Vaccines (1 - Tdap) 1971 Pneumococcal Vaccine: 50+ Ye ars (1 of 1 - PCV) 2002 Zoster Vaccines (1 of 2) 2002 COVID-19 Vaccine ( - 2023-2 5 season) 2024 Influenza Vaccine (#1) 2024 RSV Immunization Adult Patie nts (1 - 1-dose 75+ series) 2027 HIB Vaccines Aged Out No longer eligi ble based on patient's age to complete this topic HPV Vaccines Aged Out No longer eligi ble based on patient's age to complete this topic Hepatitis A Vaccines Aged Out No long er eligible based on patient's age to complete this topic Hepatitis B Vaccines Aged Out No long er eligible based on patient's age to complete this topic IPV Vaccines Aged Out No longer eligi ble based on patient's age to complete this topic MMR Vaccines Aged Out No longer eligi ble based on patient's age to complete this topic Meningococcal ACWY Vaccine Aged Out N o longer eligible based on patient's age to complete this topic Meningococcal B Vacine Aged Out No lo nger eligible based on patient's age to complete this topic RSV Immunization Patients Un jessica 20 months Aged Out No longer eligible b ased on patient's age to complete this topic Varicella Vaccines Aged Out No longer eligible based on patient's age to complete this topic Medical Devices Implanted Type Area Director Of Plant Operations Device Identifier Shelf Expiration Date Model / Serial / Lot Shell Trident Ii F 58mm 5 Screw Hole Cluster Tritanium - [id number] Implanted:Qty: 1 on 06/05/2019 by Jonathan Traore MD Left: Hip [employer] 01/20/2024 702-04-58F / / [id number] Screw Trident Ii 30mm 6.5mm Low Profile Hexagonal Bone - [id number] Implanted:Qty: 1 on 06/05/2019 by Jonathan Traore MD Left: Hip [employer] 12/01/2023 [id number] / / [id number] Screw Trident Ii 25mm 6.5mm Low Profile Hexagonal Bone - [id number] Implanted:Qty: 1 on 06/05/2019 by Jonathan Traore MD Left: Hip [employer] 01/12/2024 [id number] / / [id number] Insert Trident 10d F 36mm X3 Acetabular Hip - [id number] Implanted:Qty: 1 on 06/05/2019 by Jonathan Traore MD Left: Hip [employer] 09/23/2023 623-10-36F / / [id number] Stem Hip Neck Angle 127 Degree Accolade Ii Sz7 - [id number] Implanted:Qty: 1 on 06/05/2019 by Jonathan Traore MD Left: Hip [employer] 02/16/2024 [id number] / / [id number] Head V40 -5mm 36mm Delta Femoral Hip - [id number] Implanted:Qty: 1 on 06/05/2019 by Jonathan Traore MD Left: Hip [employer] 03/17/2024 6570-0-036 / / [id number] Care Teams Customer Service Associate Relationship Specialty Start Date End Date Rashel Camejo MD [address] [place] [phone] PCP - General Internal Medicine 07/30/12
== END 2024-08-21 08:45 | disposition home or self-care (01) ==
LOC: HO.HOS 08:25
PROVIDERS: PCP Physician Assistant Medical; Visit Provider Orthopaedic Surgery
DX: M75.42 Impingement syndrome of left shoulder (principal); M25.512 Pain in left shoulder; M17.11 Unilateral primary osteoarthritis, right knee
CPT/HCPCS: 20610; 99213

== ENCOUNTER → 2024-08-21 08:24 | Outpatient (BNVA) | payer MEDICARE, SELFPAY | PROVIDERS: PCP Physician Assistant Medical; Visit Provider Orthopaedic Surgery | DX: M75.42 Impingement syndrome of left shoulder (principal); M25.512 Pain in left shoulder; M17.11 Unilateral primary osteoarthritis, right knee | CPT/HCPCS: 20610; 99212; J1010; J2003 ==

== ENCOUNTER 2024-11-27 08:03 | Outpatient (AMB) | payer MEDICARE, SELFPAY ==
--- OUTSIDE RECORDS SUMMARY | 2024-11-27 08:07 | XMS_ITS | Clinical Summary ---
Author Organization [facility] Address [address] [place] [address] Care Team Providers Care Electric Scoop Operator Name Role Phone Unavailable Primary Care Provider Unavailabl e Social History Tobacco Use Types Packs/Day Years Used Date Smoking Tobacco: Never Assessed Sex and Gender Information Value Date Recorded Sex Assigned at Not on file Legal Sex Male 11:53 AM EDT Gender Identity Not on file Sexual Orientation [...]
--- OUTSIDE RECORDS SUMMARY | 2024-11-27 08:07 | XMS_ITS | Clinical Summary ---
Author Organization [facility] Facility Address [address] [address] Care Team Providers Care Acoustical Engineer Name Role Phone Tacho Moore PA-C Primary Care Provider [phone] Allergies Active Allergy Reactions Criticality Noted Date [...] syndrome 11/15/2020 Atherosclerotic heart diseas e of [place] coronary artery without angina pectoris, not otherwise [...] 03/20/20 Peripheral vascular disease 12/11/2011 03/20/2021 Immunizations Immunization Administration Dates Next Due Influenza TIV (IM) 02/18/2019 Influenza Vaccine, Quadrivalent, Adjuvanted 12/2019 Influenza, Trivalent, Adjuvanted 02/27/2019 Moderna SARS-COV-2 08/17/2020,07/20/2020 Pneumococcal Polysaccharide 06/21/2014 Tdap 06/21/2014 Family History Medical History Relation Comments Diabetes Father Heart disease Mother [place] Relation Status Comments Father Mother Social History [...] Colorectal Cancer Screening: Sigmoidoscopy 2001 Pneumococcal Vaccine: 50+ Years (2 of 2 - PCV) 06/21/2015 06/21/2014 Influenza Vaccine (#1) 2025 0, 02/27/2019, 02/18/2019 Pneumococcal Vaccine: Peds ( 0 to 5 Years) and At-Risk Patients (6 to 49 Years) Discontinued 06/21/2014 Hepatitis B Vaccine Aged Out No longe r eligible based on patient's age to complete this topic Insurance Medicare Medicare Care Teams Acoustical Engineer Relationship Specialty Start Date End Date Tacho Moore PA-C [address] [place] [phone] PCP - General Physician Patient Care Provider 11/18/20
--- OUTSIDE RECORDS SUMMARY | 2024-11-27 08:07 | XMS_ITS | Clinical Summary ---
Author Organization [facility] Address [address] [place] [address] Care Team Providers Care Licensing Director Name Role Phone Rashel Camejo MD Primary Care Provider [phone] Allergies No known active allergies Medications Medication [...] 71) LIVER FAIL URE Mother (Age 62) [place] Social History Tobacco Use Types Packs/Day Years [...] 75 06/06/2019 8:50 AM EST Temperature 36.7 C (98 F) 06/06/2019 8:50 AM EST Respiratory Rate 15 [...] 1 - PCV) 2017 Influenza Vaccine (#1) 2025 RSV Adult > 60+ Yrs or Pregn ant (1 - 1-dose 75+ series) 2027 Hepatitis B Vaccines Aged Out No long er eligible based on patient's age to complete this topic RSV Ped < 20 months Aged Out No longe r eligible based on patient's age to complete this topic Medical Devices Implanted Type Area Transport Conductor Device Identifier Shelf Expiration Date Model / Serial / Lot Shell Trident Ii F 58mm 5 Screw Hole Cluster Tritanium - [id number] - [id number] Implanted:Qty: 1 on 06/05/2019 by Jonathan Traore MD at [facility] and [facility] Left: Hip [facility] 01/20/2024 702-04-58F / / [id number] Screw Trident Ii 30mm 6.5mm Low Profile Hexagonal Bone - [id number] - [id number] Implanted:Qty: 1 on 06/05/2019 by Jonathan Traore MD at [facility] and [facility] Left: Hip [employer] 12/01/2023 7880-2496 / / [id number] Screw Trident Ii 25mm 6.5mm Low Profile Hexagonal Bone - [id number] - [id number] Implanted:Qty: 1 on 06/05/2019 by Jonathan Traore MD at [facility] and Med Left: Hip [employer] 01/12/2024 9328-5072 / / [id number] Insert Trident 10d F 36mm X3 Acetabular Hip - [id number] - [id number] Implanted:Qty: 1 on 06/05/2019 by Jonathan Traore MD at [facility] and [facility] Left: Hip [employer] 09/23/2023 623-10-36F / / [id number] Stem Hip Neck Angle 127 Degree Accolade Ii 7 - [id number] - [id number] Implanted:Qty: 1 on 06/05/2019 by Jonathan Traore MD at [facility] and [facility] Left: Hip [facility] 02/16/2024 1734-1441 / / [id number] Head V40 -5mm 36mm Delta Femoral Hip - [id number] - [id number] Implanted:Qty: 1 on 06/05/2019 by Jonathan Traore MD at [facility] and [facility] Left: Hip [facility] 03/17/2024 6570-0-036 / / [id number] Advance Directives For more information, please contact: [phone] Latest Code Status on File Code Status [...] way: discussion with patient . Care Teams Licensing Director Relationship Specialty Start Date End Date Rashel Camejo MD [address] [facility] [address] Cardiology & [place] [address] PCP - General Internal Medicine 06/02/19
--- OUTSIDE RECORDS SUMMARY | 2024-11-27 08:07 | XMS_ITS | Clinical Summary ---
Author Organization [facility] it Address [address] [place] [address] Care Team Providers Care Carburetor Specialist Name Role Phone Rashel Camejo MD Primary Care Provider [phone] Surgical History Surgery Date Site/Laterality Comments FACIAL RECONSTRUCTION SURGERY PROCEDURE:FACIAL RECONSTRUCTION SURGERY CARDIAC CATHETERIZATION 2007 PROCEDURE:CARDIAC CATHETERIZATION;COMMENT:STENT VEIN SURGERY PROCEDURE:VEIN SURGERY LEG SURGERY Left PROCEDURE:LEG SURGERY;COMMENT:FOOT LEG SURGERY 2011 Left PROCEDURE:LEG SURGERY;COMMENT:BYPASS COLONOSCOPY PROCEDURE:COLONOSCOPY BLADDER SURGERY PROCEDURE:BLADDER SURGERY;COMMENT:TURBT TOTAL HIP ARTHROPLASTY 06/05/2019 Left PROCEDURE:TOTAL HIP ARTHROPLASTY;COMMENT:Procedur e: REPLACEMENT TOTAL HIP; Surgeon: Jonathan Traore MD; Location: [facility] [place] Service: Orthopedics; Laterality: Left; JOINT REPLACEMENT PROCEDURE:JOINT REPLACEMENT Medical History Medical History Date Comments Blood clotting tendency ([facility]/HCC V24) DX:Blood clotting tendency (HCC) Cancer (CMS/HCC V24, CMS/HCC V28) DX:Cancer (HCC) Osteoporosis DX:Osteoporosis Blind DX:Blind;COMMENT :LEFT EYE Osteoarthritis DX:Osteoarthriti s Rash DX:Rash;COMMENT: RIGHT LEG Angina pectoris (CMS/HCC V24) 2007 DX :Angina pectoris (HCC) Myocardial infarction (CMS/H CC V24, CMS/HCC V28) 2007 DX:Myocardial infarction (HC C) Hyperlipidemia DX:Hyperlipidemi a Hypertension DX:Hypertension Anxiety DX:Anxiety Glaucoma DX:Glaucoma Family History Medical History Relation Name Comments Arthritis Brother Alcohol abuse Father Diabetes Father Alcohol abuse Mother Heart disease Mother Relation Name Status Comments Brother Alive Father (Age 69) LIVER FAIL URE Mother (Age 62) [place] Social History Tobacco Use Types Packs/Day Years [...] Vaccines (1 of 2) 2002 COVID-19 Vaccine (1 - 2023-2 5 season) 2024 Influenza Vaccine (#1) 2025 RSV Immunization Adult Patie nts (1 - [...] age to complete this topic Meningococcal B Vaccine Aged Out No l onger eligible based on patient's age to complete this topic RSV Immunization Patients Un jessica 20 months Aged Out No longer eligible b ased on patient's age to complete this topic Varicella Vaccines Aged Out No longer eligible based on patient's age to complete this topic Medical Devices Implanted Type Area Band Presser Device Identifier Shelf Expiration Date Model / Serial / Lot Shell Trident Ii F 58mm 5 Screw Hole Cluster Tritanium - [id number] Implanted:Qty: 1 on 06/05/2019 by Jonathan Traore MD Left: Hip [facility] 01/20/2024 702-04-58F / / [id number] Screw Trident Ii 30mm 6.5mm Low Profile Hexagonal Bone - [id number] Implanted:Qty: 1 on 06/05/2019 by Jonathan Traore MD Left: Hip [facility] 12/01/2023 8701-4896 / / [id number] Screw Trident Ii 25mm 6.5mm Low Profile Hexagonal Bone - [id number] Implanted:Qty: 1 on 06/05/2019 by Jonathan Traore MD Left: Hip [employer] 01/12/2024 0966-4549 / / [id number] Insert Trident 10d F 36mm X3 Acetabular Hip - [id number] Implanted:Qty: 1 on 06/05/2019 by Jonathan Traore MD Left: Hip [facility] 09/23/2023 623-10-36F / / [id number] Stem Hip Neck Angle 127 Degree Accolade Ii Sz7 - [id number] Implanted:Qty: 1 on 06/05/2019 by Jonathan Traore MD Left: Hip [facility] 02/16/2024 1401-2529 / / [id number] Head V40 -5mm 36mm Delta Femoral Hip - [id number] Implanted:Qty: 1 on 06/05/2019 by Jonathan Traore MD Left: Hip [facility] [facility] 03/17/2024 6570-0-036 / / [id number] Care Teams Carburetor Specialist Relationship Specialty Start Date End Date Rashel Camejo MD [address] [address] PCP - General Internal Medicine 07/30/12
--- NOTE | 2024-11-27 08:20 | MHC.OFFVIS ---
Vital Signs 11/27/24 08:23 Height 6 ft Weight 190 lb BMI 25.8 Intake Visit Reasons: OV- Left Shoulder last inj 08/21/24 Intake Note: Medhat is a 74 year old male who presents with complaints of left shoulder pain. He describes his pain as sharp in nature. He has had cortisone injections in the past which gave him fairly good relief. He denies any weakness. He has tried Tylenol and anti-inflammatory medicines which gave him mild relief. He would like to hold off on surgery if at all possible. Allergies No Known Allergies Allergy (Verified 11/27/24 08:23) Medication List - Last Reconciled 11/27/24 by Jonathan Traore MD aspirin (Adult Low Dose Aspirin) 81 mg PO DAILY atorvastatin 40 mg PO BEDTIME dorzolamide 2% 1 drp ophthalmic (eye) TID latanoprost 0.005% 1 drp ophthalmic (eye) DAILY PFS Social History (Updated 02/14/24 @ 09:25 by WERO Godoy) Alcohol intake: former Patient Tobacco Use Status: Never used Tobacco Current occupational status: retired Physical Exam Vital Signs: BMI result Body Mass Index 25.8 Const Other: Well-nourished well-developed very friendly male awake alert and oriented x3 in no acute distress Extrem Other: Left shoulder examination shows slightly decreased range motion when compared to his right shoulder, positive impingement signs, no instability Office Procedures AMB Joint Injection/Aspiration Joint Injection/Aspiration Primary Site: left shoulder Prep: site was prepped using aseptic technique Injected: 40 mg of, DepoMedrol and 1% plain lidocaine Procedure: The patient tolerated the procedure well Coding 76821 - Large joint Procedure code (CPT) selection complete Assessment & Plan Assessment & Plan (1) Impingement syndrome of left shoulder: Code(s): M75.42 - Impingement syndrome of left shoulder Category: Medical Plan Mr. Herrera presents with left shoulder pain due to impingement syndrome. The risks and benefits of a left shoulder cortisone injection were discussed at length with the patient. The patient wished to proceed. He tolerated the injection well. He will continue with his home stretching program. He will contact me prior to his follow-up appointment in 3 months should any questions or concerns arise. Feel free to call me at any time should questions regarding his orthopedic management arise. I spent 21 minutes in reviewing the patient's records and imaging studies, seeing the patient and documenting in the medical record. Orders: Orders AMB Joint Injection/Aspiration Today M75.42 - Impingement syndrome of left shoulder Coding Level of Care Code Est Pt Level 3 (61627) Complex EM visit Add On G2211 Diagnoses Impingement syndrome of left shoulder M75.42 CPT Codes Coding - 05625 Large joint: 29785 - Large joint ([id number])
[2024-11-27 08:23] VITALS: BMI 25.8
== END 2024-11-27 08:46 | disposition home or self-care (01) ==
LOC: HO.HOS 08:03
PROVIDERS: PCP Physician Assistant Medical; Visit Provider Orthopaedic Surgery
DX: M75.42 Impingement syndrome of left shoulder (principal)
CPT/HCPCS: 20610; 99213

== ENCOUNTER → 2024-11-27 08:03 | Outpatient (BNVA) | payer MEDICARE, SELFPAY | PROVIDERS: PCP Physician Assistant Medical; Visit Provider Orthopaedic Surgery | DX: M75.42 Impingement syndrome of left shoulder (principal) | CPT/HCPCS: 20610; 99212; J1010; J2003 ==

== ENCOUNTER 2025-04-08 07:55 | Outpatient (AMB) | payer MEDICARE, SELFPAY ==
--- NOTE | 2025-04-08 08:16 | MHC.OFFVIS ---
Vital Signs 04/08/25 08:18 Height 6 ft Weight 200 lb BMI 27.1 Handedness Right Intake Visit Reasons: Inj-left shoulder injection/last inj 11/27/24 Intake Note: Medhat is a 74 year old man who presents with complaints of left shoulder pain. He describes his pain as sharp in nature. Most of the pain is along the lateral aspect of his left shoulder. He has tried Tylenol and anti-inflammatory medicines which gave him mild relief. He denies any weakness. He would like to hold off on surgery if at all possible. Allergies No Known Allergies Allergy (Verified 04/08/25 08:17) Medication List - Last Reconciled 04/08/25 by Jonathan Traore MD aspirin (Adult Low Dose Aspirin) 81 mg PO DAILY atorvastatin 40 mg PO BEDTIME cilostazol 50 mg PO BID dorzolamide 2% 1 drp ophthalmic (eye) TID latanoprost 0.005% 1 drp ophthalmic (eye) DAILY metoprolol tartrate 25 mg PO DAILY tramadol 50 - 100 mg PO TID PRN PFSH Medical History (Updated 04/08/25 @ 08:18 by WERO Godoy) Left shoulder pain Impingement syndrome of left shoulder Social History Alcohol intake: former Patient Tobacco Use Status: Never used Tobacco Current occupational status: retired Physical Exam Vital Signs: BMI result Body Mass Index 27.1 Const Other: Well-nourished well-developed very friendly male awake alert and oriented x3 in no acute distress Extrem Other: Left shoulder examination shows full range motion when compared to his right shoulder, 4+ out of 5 strength with supraspinatus testing, positive impingement signs, no instability Office Procedures AMB Joint Injection/Aspiration Joint Injection/Aspiration Primary Site: Left Shoulder Prep: site was prepped using aseptic technique Injected: 40 mg of, DepoMedrol, with 3 mL of and 1% plain Lidocaine Procedure: The patient tolerated the procedure well Coding 33041 - Large joint Procedure code (CPT) selection complete Assessment & Plan Assessment & Plan (1) Impingement syndrome of left shoulder: Code(s): M75.42 - Impingement syndrome of left shoulder Category: Medical Plan Mr. Herrera presents with left shoulder pain due to impingement syndrome. The risks and benefits of a left shoulder cortisone injection were discussed at length with the patient. The patient wished to proceed. He tolerated the injection well. He will continue with his home exercise program. He will contact me prior to his follow-up appointment in 3 months should any questions or concerns arise. Feel free to call me at any time should questions regarding his orthopedic management arise. I spent 20 minutes in reviewing the patient's records and imaging studies, seeing the patient and documenting in the medical record. Orders: Orders AMB Joint Injection/Aspiration Today M75.42 - Impingement syndrome of left shoulder Coding Level of Care Code Est Pt Level 3 (28626) Complex EM visit Add On G2211 Diagnoses Impingement syndrome of left shoulder M75.42 CPT Codes Coding - 63736 Large joint: 39039 - Large joint ([id number])
[2025-04-08 08:18] VITALS: BMI 27.1
--- OUTSIDE RECORDS SUMMARY | 2025-04-08 15:27 | XMS_ITS | Clinical Summary ---
Author Organization [facility] Address [address] [place] [address] Care Team Providers Care Transit Operations Supervisor Name Role Phone Rashel Camejo MD Primary Care Provider [phone] Allergies No known active allergies Medications Medication [...] 71) LIVER FAIL URE Mother (Age 62) [place] Social History Tobacco Use Types Packs/Day Years [...] this topic Medical Devices Implanted Type Area Mica Paster Device Identifier Shelf Expiration Date Model / Serial / Lot Shell Trident Ii F 58mm 5 Screw Hole Cluster Tritanium - [id number] - [id number] Implanted:Qty: 1 on 06/05/2019 by Jonathan Traore MD at [facility] and Med Left: Hip [facility] 01/20/2024 702-04-58F / / [id number] Screw Trident Ii 30mm 6.5mm Low Profile Hexagonal Bone - 317175 - [id number] Implanted:Qty: 1 on 06/05/2019 by Jonathan Traore MD at [facility] and [facility] Left: Hip [facility] 12/01/2023 8341-0808 / / [id number] Screw Trident Ii 25mm 6.5mm Low Profile Hexagonal Bone - [id number] - [id number] Implanted:Qty: 1 on 06/05/2019 by Jonathan Traore MD at [facility] Left: Hip [employer] 01/12/2024 3201-2158 / / [id number] Insert Trident 10d F 36mm X3 Acetabular Hip - 068865 - [id number] Implanted:Qty: 1 on 06/05/2019 by Jonathan Traore MD at [facility] Left: Hip [facility] 09/23/2023 623-10-36F / / [id number] Stem Hip Neck Angle 127 Degree Accolade Ii 7 - [id number] - [id number] Implanted:Qty: 1 on 06/05/2019 by Jonathan Traore MD at [facility] Left: Hip [facility] 02/16/2024 5695-6136 / / [id number] Head V40 -5mm 36mm Delta Femoral Hip - 776016 - [id number] Implanted:Qty: 1 on 06/05/2019 by Jonathan Traore MD at [facility] and [facility] Left: Hip [facility] 03/17/2024 6570-0-036 / / [id number] Advance Directives For more information, please contact: [phone] Latest Code Status on File Code Status [...] way: discussion with patient . Care Teams Transit Operations Supervisor Relationship Specialty Start Date End Date Rashel Camejo MD [address] [facility] [address] Cardiology & [place] [address] PCP - General Internal Medicine 06/02/19
--- OUTSIDE RECORDS SUMMARY | 2025-04-08 15:28 | XMS_ITS | Clinical Summary ---
Author Organization [facility] it Address [address] [place] [address] Care Team Providers Care Human Factors Engineer Name Role Phone Rashel Camejo MD Primary Care Provider [phone] Surgical History Surgery Date Site/Laterality Comments FACIAL RECONSTRUCTION SURGERY PROCEDURE:FACIAL RECONSTRUCTION SURGERY CARDIAC CATHETERIZATION 2007 PROCEDURE:CARDIAC CATHETERIZATION;COMMENT:STENT VEIN SURGERY PROCEDURE:VEIN SURGERY LEG SURGERY Left PROCEDURE:LEG SURGERY;COMMENT:FOOT LEG SURGERY 2011 Left PROCEDURE:LEG SURGERY;COMMENT:BYPASS COLONOSCOPY PROCEDURE:COLONOSCOPY BLADDER SURGERY PROCEDURE:BLADDER SURGERY;COMMENT:TURBT TOTAL HIP ARTHROPLASTY 06/05/2019 Left PROCEDURE:TOTAL HIP ARTHROPLASTY;COMMENT:Procedur e: REPLACEMENT TOTAL HIP; Surgeon: Jonathan Traore MD; Location: [facility] Service: Orthopedics; Laterality: Left; JOINT REPLACEMENT PROCEDURE:JOINT REPLACEMENT Medical History Medical History Date Comments Blood clotting tendency ([facility]/HCC V24) DX:Blood clotting tendency (HCC) Cancer (CMS/HCC [...] Used Date Smoking Tobacco: Former Cigarettes 1.5 Q uit: 05/21/2007 Smokeless Tobacco: Never Alcohol [...] 2002 Zoster Vaccines (1 of 2) 2002 Depression Screening 05/21/2024 COVID-19 Vaccine (1 - 2024-2 6 season) 2025 Influenza Vaccine (#1) 2025 RSV Immunization Adult [...] this topic Medical Devices Implanted Type Area Lead Tinner Device Identifier Shelf Expiration Date Model / Serial / Lot Shell Trident Ii F 58mm 5 Screw Hole Cluster Tritanium - [id number] Implanted:Qty: 1 on 06/05/2019 by Jonathan Traore MD Left: Hip [facility] 01/20/2024 702-04-58F / / [id number] Screw Trident Ii 30mm 6.5mm Low Profile Hexagonal Bone - [id number] Implanted:Qty: 1 on 06/05/2019 by Jonathan Traore MD Left: Hip [facility] 12/01/2023 1568-1426 / / [id number] Screw Trident Ii 25mm 6.5mm Low Profile Hexagonal Bone - [id number] Implanted:Qty: 1 on 06/05/2019 by Jonathan Traore MD Left: Hip [employer] 01/12/2024 5445-2557 / / [id number] Insert Trident 10d F 36mm X3 Acetabular Hip - [id number] Implanted:Qty: 1 on 06/05/2019 by Jonathan Traore MD Left: Hip [facility] 09/23/2023 623-10-36F / / [id number] Stem Hip Neck Angle 127 Degree Accolade Ii Sz7 - [id number] Implanted:Qty: 1 on 06/05/2019 by Jonathan Traore MD Left: Hip [facility] 02/16/2024 6638-5750 / / [id number] Head V40 -5mm 36mm Delta Femoral Hip - [id number] Implanted:Qty: 1 on 06/05/2019 by Jonathan Traore MD Left: Hip [facility] 03/17/2024 6570-0-036 / / [id number] Care Teams Human Factors Engineer Relationship Specialty Start Date End Date Rashel Camejo MD [address] [address] PCP - General Internal Medicine 07/30/12
--- OUTSIDE RECORDS SUMMARY | 2025-04-08 15:28 | XMS_ITS | Clinical Summary ---
Author Organization [facility] Address [address] [place] [address] Care Team Providers Care Workers Compensation Paralegal Name Role Phone Unavailable Primary Care Provider Unavailabl e Social History Tobacco Use Types Packs/Day Years Used Date Smoking Tobacco: Never Assessed Sex and Gender Information Value Date Recorded Sex Assigned at Not on file Legal Sex Male 11:53 AM EDT Gender Identity Not on file Sexual Orientation Not on file Plan of Treatment Health Maintenance Due Date Last Done Comments Advance Care Planning 1950 Hepatitis C Virus Screening 1950 DTaP/Tdap/Td Vaccines (1 - Tdap) 1971 Pneumococcal Vaccines 50+ (1 of 1 - PCV) 2002 Zoster (Shingles) Vaccine (1 of 2) 2002 COVID-19 Vaccine ( - 2023-2 5 season) 2025 RSV Vaccine 50 years and old er and Patients (1 - 1-dose 75+ series) 2027 Hepatitis B Vaccines Aged Out No long er eligible based on patient's age to complete this topic
--- OUTSIDE RECORDS SUMMARY | 2025-04-08 15:28 | XMS_ITS | Clinical Summary ---
Author Organization [facility] Address [address] [address] Care Team Providers Care Crimper Operator Name Role Phone Tacho Moore PA-C Primary Care Provider [phone] Allergies Active Allergy Reactions Criticality Noted Date [...] Cyst of kidney 11/15/2020 Dyslipidemia 11/15/2020 Tobacco use disorder 11/15/2020 Atherosclerotic heart diseas e of [place] coronary artery without angina pectoris, not otherwise [...] Relation Comments Diabetes Father Heart disease Mother [place] Relation Status Comments Father Mother Social History Tobacco Use Types Packs/Day Years Used Date Smoking Tobacco: Former Cigarettes 0 Q uit: 05/21/2011 Smokeless Tobacco: Never Sex [...] this topic Insurance Medicare Medicare Care Teams Crimper Operator Relationship Specialty Start Date End Date Tacho Moore PA-C [address] [place] [id number] PCP - General Physician Water And Gas Helper 11/18/20
== END 2025-04-08 08:44 | disposition home or self-care (01) ==
LOC: HO.HOS 07:56
PROVIDERS: PCP Physician Assistant Medical; Visit Provider Orthopaedic Surgery
DX: M75.42 Impingement syndrome of left shoulder (principal)
CPT/HCPCS: 20610

== ENCOUNTER → 2025-04-08 07:55 | Outpatient (BNVA) | payer MEDICARE, SELFPAY | PROVIDERS: PCP Physician Assistant Medical; Visit Provider Orthopaedic Surgery | DX: M75.42 Impingement syndrome of left shoulder (principal) | CPT/HCPCS: 20610; J1010; J2003 ==